=== PATIENT | male | born 1990 | race Caucasian/White ===

== ENCOUNTER → 2017-06-20 | Outpatient (CLI) | payer OTHER ==
[2011-08-01 19:13] VITALS: BP 128/73
[~2017-06-20] MED LIST: AMITRIPTYLINE50 MG PO; GABAPENTIN300 MG PO; OMEPRAZOLE40 MG PO; PREDNISONE10 M1 PO; RYBIX ODT50 MG PO
[2017-06-20 15:38] LABS: EOS # 0.2 (0.04-0.40); EOS % 2.5 % (0.0-4.0); HEMATOCRIT 44.3 % (42.0-52.0); HEMOGLOBIN 15.2 g/dL (13.5-18.0); MEAN CELL VOLUME 84 fl (78-100); MEAN CORPUSCULAR HEMOGLOBIN 29 pg (27-31); MEAN CORPUSCULAR HGB CONC 34 g/dL (33-37); MEAN PLATELET VOLUME 10.4 fl (7.4-10.4); MONO # 0.7 (0.20-0.80); NEU # 3.2 (1.40-6.50); PLATELET COUNT 286 K/mm3 (130-400); RED BLOOD COUNT 5.26 M/mm3 (4.20-5.60); RED CELL DISTRIBUTION WIDTH 12.5 % (11.5-14.5); WHITE BLOOD COUNT 6.1 K/mm3 (4.8-10.8)
[2017-06-20 15:52] LABS: ALBUMIN 4.3 g/dL (3.5-5.0); BUN/CREATININE RATIO 11.8 (6.0-26.0); CALCIUM 8.4 mg/dL (8.4-10.2); POTASSIUM 3.7 mmol/L (3.6-5.0); TOTAL BILIRUBIN 0.3 mg/dL (0.2-1.3); TOTAL PROTEIN 7.8 g/dL (6.3-8.2)
== END ==
LOC: LAB 15:01
PROVIDERS: Family Medicine
DX: N23 Unspecified renal colic (principal); R35.0 Frequency of micturition

== ENCOUNTER → 2017-06-24 | Outpatient (CLI) | payer OTHER ==
[2011-08-01 19:13] VITALS: BP 128/73
== END ==
LOC: RAD 15:29
DX: R10.9 Unspecified abdominal pain (principal); R07.81 Pleurodynia
CPT/HCPCS: Q9967

== ENCOUNTER 2017-12-30 11:45 | Emergency (ER) | payer OTHER ==
[~2017-12-30] VITALS: Ht 180.3 cm; Wt 96.4 kg
[2017-12-30 12:31] LABS: EOS # 0.1 (0.04-0.40); EOS % 1.5 % (0.0-4.0); HEMATOCRIT 43.4 % (42.0-52.0); HEMOGLOBIN 15.3 g/dL (13.5-18.0); LYMPH# 1.6 (1.50-4.00); MEAN CELL VOLUME 83 fl (78-100); MEAN CORPUSCULAR HEMOGLOBIN 29 pg (27-31); MEAN CORPUSCULAR HGB CONC 35 g/dL (33-37); MEAN PLATELET VOLUME 11.4 fl (7.4-10.4); MONO # 0.5 (0.20-0.80); NEU # 4.5 (1.40-6.50); PLATELET COUNT 221 K/mm3 (130-400); RED BLOOD COUNT 5.23 M/mm3 (4.20-5.60); RED CELL DISTRIBUTION WIDTH 12.5 % (11.5-14.5); WHITE BLOOD COUNT 6.8 K/mm3 (4.8-10.8)
[2017-12-30 13:15] LABS: CALCIUM 8.8 mg/dL (8.4-10.2); POTASSIUM 3.7 mmol/L (3.6-5.0); TOTAL BILIRUBIN 0.7 mg/dL (0.2-1.3); TOTAL PROTEIN 6.8 g/dL (6.3-8.2)
[2017-12-30 13:26] LABS: D-DIMER 0.13 mg/L FEU (0.15-0.50)
[2017-12-30 14:23] LABS: URINE APPEARANCE CLEAR; URINE BILIRUBIN NEGATIVE (NEGATIVE); URINE BLOOD NEGATIVE (NEGATIVE); URINE COLOR DARK YELLOW; URINE GLUCOSE NEGATIVE (NEGATIVE); URINE KETONE SMALL (NEGATIVE); URINE LEUKOCYTE ESTERASE NEGATIVE (NEGATIVE); URINE MUCUS PRESENT (NOT PRESENT); URINE NITRATE NEGATIVE (NEGATIVE); URINE PROTEIN(semi-quant) TRACE mg/dL (NEGATIVE); URINE UROBILINOGEN NORMAL (NORMAL)
[2017-12-30 14:44] VITALS: BP 121/50
== END 2017-12-30 14:35 | disposition home or self-care (01) ==
LOC: ED 11:45
PROVIDERS: Nurse Practitioner Family
DX: R07.89 Other chest pain (principal); E86.0 Dehydration; K21.9 Gastro-esophageal reflux disease without esophagitis; R42 Dizziness and giddiness; R19.7 Diarrhea, unspecified; R53.83 Other fatigue
CPT/HCPCS: J7030

== ENCOUNTER → 2020-02-14 | Outpatient (CLI) | payer OTHER | LOC: LAB 09:23 | DX: R51.9 Headache, unspecified (principal); R19.7 Diarrhea, unspecified; R09.81 Nasal congestion; Z20.828 Contact with and (suspected) exposure to other viral communicable diseases ==

== ENCOUNTER 2023-03-01 12:18 | Emergency (ER) | payer OTHER ==
[~2023-03-01] VITALS: Ht 180.3 cm; Wt 104.5 kg
[2023-03-01 12:25] VITALS: BP 130/77
== END 2023-03-01 13:06 | disposition home or self-care (01) ==
LOC: ED 12:18
DX: T16.2XXA Foreign body in left ear, initial encounter (principal); W49.04XA Ring or other jewelry causing external constriction, initial encounter